=== PATIENT | female | born 1950 | race Caucasian/White ===

== ENCOUNTER 2016-06-22 05:54 | Inpatient (IN) | payer MEDICARE, OTHER ==
[2016-06-17 11:40] LABS: ASCORBIC ACID (UR NOT ORDER) NEG (NEG); BILIRUBIN, URINE NEGATIVE (NEG); KETONE, URINE NEGATIVE (NEG); LEUKOCYTE ESTERASE(NOT OR SMALL (NEG); WBC (NOT ORDERED) (RFLEX) 4 (0-5)
[2016-06-17 12:12] LABS: BASOPHILS 0.4 %; BASOPHILS ABSOLUTE 0.02 10/3/uL (0.0-0.16); EOSINOPHILS 1.6 %; EOSINOPHILS ABSOLUTE 0.09 10/3/uL (0.0-0.53); HEMATOCRIT 44.4 % (36.0-48.0); HEMOGLOBIN 14.6 g/dL (12.0-16.0); IMMATURE GRANULOCYTES 0.2 %; IMMATURE GRANULOCYTES ABSOLUTE 0.01 10/3/uL (0.0-0.11); LYMPHOCYTES 38.4 %; LYMPHOCYTES ABSOLUTE 2.17 10/3/uL (0.67-4.30); MANUAL DIFF NO %; MEAN CORPUS HGB CONC 32.9 g/dL (32.0-36.0); MEAN CORPUSCULAR HEMOGLOB 32.1 pg (26.0-34.0); MEAN CORPUSCULAR VOLUME 97.6 fL (80-100); MEAN PLATELET VOLUME 10.8 fL (9.2-13.0); MONOCYTES 12.7 %; MONOCYTES ABSOLUTE 0.72 10/3/uL (0.21-1.20); NEUTROPHILS 46.7 %; NEUTROPHILS ABSOLUTE 2.64 10/3/uL (2.02-8.40); PLATELET COUNT 193 10/3/uL (150-400); RBC DISTRIBUTION WIDTH 12.1 % (12.0-16.0); RED CELL COUNT 4.55 10/6/uL (4.0-5.6); WHITE BLOOD CELLS 5.7 10/3/uL (4.5-10.5)
[2016-06-17 12:31] LABS: A/G RATIO 1.2 (0.7-1.9); ALBUMIN 3.7 G/DL (3.5-5.0); ALKALINE PHOSPHATASE 69 U/L (45-117); BUN (BLOOD UREA NITROGEN) 15 MG/DL (6-23); CALCIUM, SERUM 9.2 MG/DL (8.5-10.4); CHLORIDE, SERUM 101 MMOL/L (96-112); CO2 (CARBON DIOXIDE) 36 MMOL/L (24-34); GFR AFRICAN AMERICAN 89 ML/MIN (>=60); GFR NON AFRICAN AMERICAN 77 ML/MIN (>=60); GLOBULIN 3.2 G/DL (2.5-4.1); GLUCOSE, SERUM 90 MG/DL (60-99); POTASSIUM, SERUM 4.1 MMOL/L (3.5-5.3); SGOT(AST) 13 U/L (5-40); SGPT(ALT) 12 U/L (5-65); SODIUM, SERUM 140 MMOL/L (135-148); TOTAL BILIRUBIN 0.5 MG/DL (0-1.2); TOTAL PROTEIN 6.9 G/DL (6.0-8.5)
--- NOTE | ~2016-06-22 | HP ---
History And Physical [place] [id number] [facility] [place]. [address] NAME: YESENIA GÓMEZ : 48 STATUS : ADM IN PAT#: [id number] AGE: 65 ADM/REG DATE : 06/22/16 MR#: [id number] REPORT SERV DATE: 06/22/16 DICTATED BY: THAD JOHNSON III DATE: 06/22/16 REPORT STATUS : Draft TRANSCRIBED BY: MODL DATE: 06/22/16 DATE OF ADMISSION: 06/22/2016 CHIEF COMPLAINT: Left knee pain. HISTORY: The patient is a 65-year-old white female, who complains of pain in the left knee and has so for the past six to twelve months. It has gotten progressively worse in the last six months to the point, where she is having difficulty ambulating short distances. Complained of rest pain, night pain, all unrelieved with nonsteroidal antiinflammatory medicines and intraarticular cortisone injections. X-rays reveal advanced osteoarthritis of her left knee and she is admitted for left total knee arthroplasty. Risks, benefits, and expected outcomes have been explained, but not limited to blood clots, infection, neurovascular injuries, patella maltracking problems, and component failures. The patient has had osteoarthritis of her right knee and underwent a successful right total knee arthroplasty on 06/16/2015 with a nice result. PAST MEDICAL HISTORY: Negative for high blood pressure, diabetes, liver, lung, or kidney problems. She does have a history of fibromyalgia and has obesity. PREVIOUS SURGERIES: Include gallbladder, meniscus arthroscopy for meniscus tear, hysterectomy, breast reduction, and a right total knee arthroplasty in 2016. MEDICATIONS: Include hydrocodone, Xanax, trazodone. ALLERGIES: SULFA. PHYSICAL EXAMINATION: GENERAL: She is alert and oriented x3. VITAL SIGNS: Stable. HEENT: Normocephalic, atraumatic. Pupils equal, round, and reactive to light and accommodation. Extraocular muscles are intact. NECK: Supple. CHEST: Clear. HEART: Regular rate and rhythm without murmur. ABDOMEN: Mild, soft, nontender. Positive bowel sounds. ORTHOPEDIC: Examination reveals marked tenderness to her left knee. She has painful range of motion 0 to 115, very tender to the medial femoral condyle and medial joint line. Some tenderness to the patellofemoral joint. Mild effusion. No erythema. No warmth. 1+ varus and valgus stress. X-rays reveal osteoarthritis of her left knee with some anterior tibial subluxation in relationship to the femur. PLAN: Admission for left total knee arthroplasty. TB/MODL History And Physical [address] [place]. [address] NAME: YESENIA GÓMEZ : 48 STATUS : ADM IN [facility]#: [id number] AGE: 65 ADM/REG DATE : 06/22/16 MR#: [id number] REPORT SERV DATE: 06/22/16 DICTATED BY: THAD JOHNSON III DATE: 06/22/16 REPORT STATUS : Draft TRANSCRIBED BY: LOLIS DATE: 06/22/16 Thad Johnson III, M.D. / [id number] CC: Darcy Snider III, M.D.
--- NOTE | ~2016-06-22 | OP ---
Record Of Operation [facility] [address] [place]. [address] NAME: YESENIA GÓMEZ : [birth year] STATUS : ADM IN PAT#: [id number] AGE: 65 ADM/REG DATE : 06/22/16 MR#: [id number] REPORT SERV DATE: 06/22/16 DICTATED BY: THAD JOHNSON III DATE: 06/22/16 REPORT STATUS : Draft TRANSCRIBED BY: MODL DATE: 06/22/16 DATE OF PROCEDURE: 06/22/2016 PREOPERATIVE DIAGNOSIS: Advanced osteoarthritis, left knee. POSTOP DIAGNOSIS: Advanced osteoarthritis, left knee. SURGICAL PROCEDURE PERFORMED: Left total knee arthroplasty using the [employer] system with a size 5 femoral component, size 5 tibial tray, +5 polyethylene insert, a 35 mm patella, posterior stabilized design. SURGEON: Thad Johnson M.D. CLOTH EXAMINER: [place]. ANESTHESIA: General. ANTIBIOTICS: Ancef 2 g. COMPLICATIONS: None. CRYSTALLOIDS: 700 mL. ESTIMATED BLOOD LOSS: 50 mL. DRAINS: None. TRANEXAMIC ACID: 2 g. TOURNIQUET TIME: 45 minutes. PROCEDURE IN DETAIL: The patient was brought to the operative room, placed on the table in supine position and general anesthesia was induced. Ancef 2 g was administered intravenously in the preop holding area. Pneumatic tourniquet was applied to the left upper thigh and the left lower extremity was prepped and draped in the usual sterile fashion. It was exsanguinated with a 6-inch Esmarch. Tourniquet was inflated to 350 mmHg. Assuring good anesthesia, a standard midline incision was made directly over the left knee followed by a medial arthrotomy. The patella was everted. The knee was flexed to 90 degrees. Medial and lateral menisci were debrided along with the anterior cruciate ligament. A 5 mm step drill was used to enter the femoral canal and intramedullary guide was placed on 5 degrees valgus for left knee. This was pinned to the distal femur, the intramedullary guide was removed. Distal femoral cut was made removing 9 mm of distal femur. Distal femur was trialed to a size 5 femoral component, marked along the epicondylar axis. Multi-cutting guide was placed in these lundberg, pinned to the distal femur, and the anterior and posterior cuts were made along with the angled chamfer cuts. The distal femoral cutting guide was next centered and pinned to the distal femur. A reciprocating saw was used to make this cut Record Of Operation [place] [address] [place]. [address] NAME: YESENIA GÓMEZ : 48 STATUS : ADM IN PAT#: [id number] AGE: 65 ADM/REG DATE : 06/22/16 MR#: [id number] REPORT SERV DATE: 06/22/16 DICTATED BY: THAD JOHNSON III DATE: 06/22/16 REPORT STATUS : Draft TRANSCRIBED BY: MODL DATE: 06/22/16 for the posterior stabilized system. Trial reduction was carried out, noting good cuts in all planes. Attention was turned toward the tibial side. The external tibial cutting guide was aligned with the second metatarsal ray and pinned to the proximal tibia. Oscillating saw was used to make this cut with a 0-degree neutral cutting block. Trial reduction was carried out with a size 5 tibial baseplate and a +5 polyethylene insert. Full extension was achieved, nice flexion to 130 degrees, flexion-extension gaps were symmetrical. The undersurface of the patella was then resurfaced by transecting 9 mm to 10 mm of bone. A 35 mm patellar template was used to place three anchor holes in the undersurface of the patella. The tibia was then prepared with a drill and a punch. Two packs of methylmethacrylate were vacuum mixed, pressurized in the good dry cancellous bone. The real components were placed. Excess cement was removed. Tourniquet was released after 45 minutes. Bleeding was controlled with the Bovie electrocautery. Thorough irrigation was carried out throughout the procedure pulse lavage system. The real size 5 polyethylene insert was locked into the tibial tray. 90 mL of Marcaine solution was injected into the wound for postoperative pain control. No drains were used. Medial arthrotomy was closed with #2 Ethibond suture and #1 Vicryl suture in 90-degree flexed position. Subcutaneous tissue was closed with 2-0 Vicryl. The skin was closed using sue. Sterile dressings were applied. The patient tolerated the procedure well, brought to recovery in satisfactory condition. There were no intraoperative, postoperative, or anesthetic complications. All instrument, needle, sponge, and lap counts were correct. TB/MODL Thad Johnson III, M.D. / [id number] CC: Thad Johnson III, M.D.
[~2016-06-22 05:54] MED LIST: DURA25 TOP; MOBIC15 MG PO; NORCO1 TAB PO; TRAZODONE150 MG PO; XANAX1 MG PO
[2016-06-24 06:06] LABS: HEMOGLOBIN 9.7 g/dL (12.0-16.0)
[2016-06-24 06:07] LABS: HEMATOCRIT 30.1 % (36.0-48.0)
[2016-06-24] MEDS ORDERED: ELIQUIS 2.5 MG2.5 MG PO (09:58)
[2016-06-24] MEDS ORDERED: PERCOCET 10/3251 TAB PO (09:58)
[2016-06-24] MEDS ORDERED: FESO4 PO (09:58)
== END 2016-06-24 13:42 | disposition home or self-care (01) | DRG 470 ==
LOC: SDC/OF 05:54 → PACU 10:26 → 3SO 11:55
PROVIDERS: Orthopaedic Surgery
PROC: 0SRD0JZ Replacement of Left Knee Joint with Synthetic Substitute, Open Approach (ICD-10-PCS; principal; 2016-06-22 07:30)
DX: M17.12 Unilateral primary osteoarthritis, left knee (principal); Z68.41 Body mass index [BMI] 40.0-44.9, adult; M79.7 Fibromyalgia; E66.9 Obesity, unspecified
CPT/HCPCS: 71020; 80053; 81001; 85014; 85018; 85025; 85610; 85730; 87086; 87641; 88305; 88311; 93005; 97110-GP; 97116-GP; 97150-GP; 97161-GP; 97165-GO; A9270-GY; C1776; G8978-CK-GP; G8979-CJ-GP; J0690; J1170; J1885; J2250; J2270; J2274; J2405; J2710; J2795; J3010; J3475